=== PATIENT | female | born 1990 | race American Indian/Alaskan Native ===

== ENCOUNTER 2018-09-25 06:30 | Inpatient (IN) | payer MEDICAID, SELFPAY ==
[2018-09-25 07:24] VITALS: BMI 27.8
[2018-09-25] MEDS ORDERED: Lactated Ringer's 1,000 ML IV ONE ×2 (07:24→07:27)
--- NOTE | 2018-09-25 08:15 | OBADHP ---
Datetime: 09/25/2018 07:47 Admit Comment, IP Provider: 27 yo with IUP at EGA of 37.3 wk JOHN 10/13/2018, who presents to ED[facility] with c/o of contractions every 4 minutes and pink vaginal mucous like discharge. Denies LOF. Re ports good movements. Denies fever, chills, dizziness, headaches, blurry vision, N/V/D/C, CP, S OB or dysuria. 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 SOCH: Denies smoking, ETOH, or Drugs SURG: None MEDS: PNV Allergies:NKDA LABS: GBS positive, ABO: O+, Rubella Immune, (Quant, HIV, GC,CHL, RPR) negative VS BP 140/83 PE GEN: NAD HEENT: NCAT RESP: CTA B/L, no wheezes rales or rhonchi CV: RRR, S1 S2 normal, no murmurs ABD: Gravid, soft to palpation, nontender EXT: No edema PELVIC: 3cm, 80% effaced, -1 station A/P 27 yo with IUP at EGA of 37.3 wk JOHN 10/13/2018, who presents to EDOB with c/o of contracti ons every 4 minutes and pink vaginal mucous like discharge Plan: -Admit to L _ D -Initiate labor protocol, IVF, pain control -GBS+ start PCN -Maternal VS monitoring- BP 140/93 -FHR monitoring 140's, moderate variability, 15x15 accels -IVF's, regular diet Case reviewed and discussed with Dr Alexa Roland PGY1 OB Hospitalist Addendum: 27 yo at 37+3 wks w/ GDM in labor. FHT reassuring. GBS positive. Will start penicillin got GBS prophylaxis. (ES) Extremities - PN: Normal Abdomen - PN: Normal Lungs - PN: Normal Heart - PN: Normal HEENT - PN: Normal General - PN: Normal FHR - Baseline A Provider: 140's Membranes, Provider: Intact Comments, ACOG Physical Exam: GEN: Lying in bed NAD HEENT: NCAT CARD: RRR + S1S2 RESP: CTA, no wheezing, rales or rhonchi GI: Gravid, + BS, no tenderness to palpation EXT: No edema, no calf tenderness Monitor FHR tracing 140's, moderate variability, 15x15 accelerations Pool Provider: Negative IP Hx Assessment: The History has been Reviewed and is Current Vital Signs Provider: Reviewed Vital Signs Provider Details: 140/83 IP Chief Complaint: Uterine contractions NICHD Variability Prov Fetus A: Moderate 6-25bpm NICHD Accel Fetus A IP Provider: [id number] FHR Category Provider Fetus A: Category I NICHD Decel Fetus A IP Provider: None Dilatation, Provider: 3 Effacement, Provider: 80 Station, Provider: -1 Genitourinary Exam: Normal EGA AdmitDate IP: 37.3 IP Adm Impression: Term, intrauterine ; Intact Membranes IP Admit Plan: Admit to unit; Initiate labor protocol Datetime: 09/25/2018 07:41 Contraction Comments Provider: [email or web address]
--- NOTE | 2018-09-25 08:27 | OBHP ---
Datetime: 09/25/2018 07:47 IP Adm Impression: Term, intrauterine ; Intact Membranes IP Admit Plan: Admit to unit; Initiate labor protocol Admit Comment, IP Provider: 27 yo with IUP at EGA of 37.3 wk JOHN 10/13/2018, who presents to ED[facility] with c/o of contractions every 4 minutes and pink vaginal mucous like discharge. Denies LOF. Re ports good movements. Denies fever, chills, dizziness, headaches, blurry vision, N/V/D/C, CP, S OB or dysuria. OBGYN: Gest DM diet controlled 1 - 2008 No hx of STD's, reports normal pap in aug no HPV Provider: [facility] PMH: Gest DM FMH: DM, HTN, [employer] Ca, Breast ca SOCH: Denies smoking, ETOH, or Drugs SURG: None MEDS: PNV Allergies:NKDA LABS: GBS positive, ABO: O+, Rubella Immune, (Quant, HIV, GC,CHL, RPR) negative VS BP 140/83 PE GEN: NAD HEENT: NCAT RESP: CTA B/L, no wheezes rales or rhonchi CV: RRR, S1 S2 normal, no murmurs ABD: Gravid, soft to palpation, nontender EXT: No edema PELVIC: 3cm, 80% effaced, -1 station A/P 27 yo with IUP at EGA of 37.3 wk JOHN 10/13/2018, who presents to ED[facility] with c/o of contracti ons every 4 minutes and pink vaginal mucous like discharge Plan: -Admit to L _ D -Initiate labor protocol, IVF, pain control -GBS+ start PCN -Maternal VS monitoring- BP 140/93 -FHR monitoring 140's, moderate variability, 15x15 accels -IVF's, regular diet Case reviewed and discussed with Dr Alexa Roland PGY1 OB Hospitalist Addendum: 27 yo at 37+3 wks w/ GDM in labor. FHT reassuring. GBS positive. Will start penicillin got GBS prophylaxis. (ES) Extremities - PN: Normal Abdomen - PN: Normal Lungs - PN: Normal Heart - PN: Normal HEENT - PN: Normal General - PN: Normal FHR - Baseline A Provider: 140's Membranes, Provider: Intact Comments, ACOG Physical Exam: GEN: Lying in bed NAD HEENT: NCAT CARD: RRR + S1S2 RESP: CTA, no wheezing, rales or rhonchi GI: Gravid, + BS, no tenderness to palpation EXT: No edema, no calf tenderness Monitor FHR tracing 140's, moderate variability, 15x15 accelerations Pool Provider: Negative IP Hx Assessment: The History has been Reviewed and is Current EGA AdmitDate IP: 37.3 Vital Signs Provider: Reviewed Vital Signs Provider Details: 140/83 IP Indication for Induction: Not Applicable IP Chief Complaint: Uterine contractions NICHD Variability Prov Fetus A: Moderate 6-25bpm NICHD Accel Fetus A IP Provider: [id number] FHR Category Provider Fetus A: Category I NICHD Decel Fetus A IP Provider: None Dilatation, Provider: 3 Effacement, Provider: 80 Station, Provider: -1 Genitourinary Exam: Normal Datetime: 09/25/2018 07:41 Contraction Comments Provider: Q4mins
[2018-09-25] MEDS ORDERED: Penicillin G 5 Million Unit Vial IVPB ONE (09:00)
[2018-09-25 09:37] LABS: BASO % 0.3 % (0.0-2.0); EOS # 0.1 K/uL (0.0-0.7); HEMOGLOBIN 12.7 g/dL (12.0-16.0); LYMPH # 1.4 K/uL (1.0-4.3); LYMPH % 18.8 % (20.0-40.0); MEAN CELL VOLUME 83.6 fl (81.0-99.0); MEAN CORPUSCULAR HEMOGLOBIN 26.9 pg (27.0-31.0); MEAN CORPUSCULAR HGB CONC 32.2 g/dL (33.0-37.0); MEAN PLATELET VOLUME 9.5 fl (7.2-11.7); MONO # 0.6 K/uL (0.0-0.8); MONO % 7.2 % (0.0-10.0); NEUT # 5.6 K/uL (1.8-7.0); NEUT % 72.7 % (50.0-75.0); NRBC % 0.1 % (0.0-0.0); RBC 4.74 Mil/uL (3.80-5.20); RED CELL DISTRIBUTION WIDTH 14.3 % (11.5-14.5); WHITE BLOOD COUNT 7.7 K/uL (4.8-10.8)
[2018-09-25] MEDS ORDERED: Bupivacaine HCl 0.5% PF (30 ml) Inj ONE (10:18)
[2018-09-25] MEDS ORDERED: Fentanyl/Bupivacaine HCl 250 ML EPI ONE (10:58)
--- NOTE | 2018-09-25 11:06 | OBPN ---
Datetime: 09/25/2018 10:03 IP Progress Impression: Normal progression of labor IP Informed Consent Obtain: Vaginal Delivery IP Procedures: Sterile Vag Exam IP Progress Plan: Continue present management Membranes, Provider: Intact Contraction Comments Provider: q 2-4 mins FHR - Baseline A Provider: 140 IP Progress Note Comment: Patient evaluated, feels contractions are stronger, would like epidural VE = 6/50/-2 FHR = 140 mod brionna, +accels, no decels TOCO = ctxns q 2-4 mins A/P 1. Patient progressing well, now 6cm dilated, requesting epidural 2. CEFm and TOCO 3. Will attempt AROM at next check NICHD Accel Fetus A IP Provider: [id number] NICHD Variability Prov Fetus A: Moderate 6-25bpm Dilatation, Provider: 6 Effacement, Provider: 50 Station, Provider: -2 NICHD Decel Fetus A IP Provider: Early Datetime: 09/25/2018 07:47 Pool Provider: Negative Vital Signs Provider: Reviewed Vital Signs Provider Details: 140/83 FHR Category Provider Fetus A: Category I Datetime: 09/25/2018 07:41 Presentation-Admit: Vertex
[2018-09-25] MEDS ORDERED: Oxytocin 30 UNIT in NS 500 ml 30 UNITS/500 ML BAG IV ONE ×3 (13:05→13:30)
[2018-09-25] MEDS ORDERED: Benzocaine/Menthol SPRAY TOP PRN ×2 (13:27→17:46)
[2018-09-25] MEDS ORDERED: Oxycodone/Acetaminophen 5/325 mg Tab PO PRN ×2 (13:27→17:46)
--- NOTE | 2018-09-25 13:36 | OBDS ---
MATERNAL INFORMATION Provider Comments: of live male over intact perineum in JESUS presentation, loose nuchal c ord, light meconium, followed by shoulders and rest of infant, mouth and nose suctioned on mother's c hest, cord blood obtained, placenta delivered spontaneously, fundus firm, no lacerations needed for r epair, EBL=50mL, pt tolerated procedure well LABOR SUMMARY EDC: 10/13/2018 00:00 No. Babies in Womb: 1 LABOR INFORMATION Onset of Labor: 09/25/2018 04:00 Group B Beta Strep: Positive
[2018-09-26 08:02] LABS: BASO % 0.3 % (0.0-2.0); EOS % 0.4 % (0.0-4.0); HEMOGLOBIN 11.4 g/dL (12.0-16.0); LYMPH # 1.5 K/uL (1.0-4.3); LYMPH % 13.7 % (20.0-40.0); MEAN CELL VOLUME 82.8 fl (81.0-99.0); MEAN CORPUSCULAR HEMOGLOBIN 27.3 pg (27.0-31.0); MEAN PLATELET VOLUME 9.2 fl (7.2-11.7); MONO # 0.8 K/uL (0.0-0.8); MONO % 7.3 % (0.0-10.0); NEUT # 8.5 K/uL (1.8-7.0); NEUT % 78.3 % (50.0-75.0); NRBC % 0.2 % (0.0-0.0); RBC 4.16 Mil/uL (3.80-5.20); RED CELL DISTRIBUTION WIDTH 14.2 % (11.5-14.5); WHITE BLOOD COUNT 10.8 K/uL (4.8-10.8)
--- NOTE | 2018-09-26 08:48 | OBPPN ---
Datetime: 09/26/2018 07:41 PP Pain Prov: Within normal limits PP Nausea Prov: Denies PP Flatus Prov: Yes PP BM Prov: No PP Breasts Prov: Not Done PP Heart Prov: Normal PP Lungs Prov: Normal PP Abdomen/Uterus Prov: Normal PP Lochia Prov: Normal PP Vulva/Perineum Prov: Normal PP CVA Tenderness Prov: Normal PP Extremities Prov: Normal PP C/S Incision Prov: Not Applicable PP Progress Prov: Normal PP Impression Prov: Normal progression PP Plan Prov: Continue present management; Discharge PP Progress Note Prov: S: 27 yo s/p on 09/25/18, PPD1. Pt was seen and examined at [facility] this AM. No overnight events. Pain is minimal. Ambulating and tolerating PO diet without difficult y. Breast feeding exclusively. Lochia < menses. +Flatus/- BM. Denies dizziness, orthostatic changes, changes in vision, palpitations, chest pain, fever, chills, diarrhea, nausea and vomiting. O: VS: Stable overnight GEN: NAD Cardio: S1S2, no murmurs Lungs: clear breath sounds b/l, no wheezing Abdomen: BS+, appropriate tenderness to palpation. Uterus is firm and at the level of the umbilic us. EXT: No edema, calves non-tender NEURO/PSYCH: AAOx3, no grossly focal deficits, preserved affect and mood. H/H: aCBC: 12.7/39.6 pCBC: pending Assessment/Plan: 27 yo s/p on 09/25/18, PPD1. Pt remains afebrile, tolerating pain. -Regular diet -Anticipate discharge, 09/27/18 -Continue with current management -Encourage and ambulating -Colace 100mg BID -Ibuprofen 600mg q6 for pain Mecca Calos, PGY 1 OB Hospitalsist Addendum: Pt seen and examined by me. Agree w/ above. PPD 1 s/p , doing well, breast feeding. Continue curent management. (ES) Vital Signs Provider PP: Reviewed; Within Normal Limits
[2018-09-26] MEDS: Multivitamin With Minerals Tab PO SCH (09:00)
[2018-09-26] MEDS ORDERED: Influenza Vaccine (5 YR UP)/PF 60 MCG/0.5 ML SYR IM ONE ×2 (09:00→13:17)
[2018-09-26] MEDS ORDERED: Multivitamin With Minerals Tab PO SCH (09:00)
[2018-09-26] MEDS ORDERED: Influenza Vaccine 60 mcg/0.5 mL SYR (4YR UP) IM ONE (14:00)
[2018-09-27] MEDS: Multivitamin With Minerals Tab PO SCH (08:47)
--- NOTE | 2018-09-27 10:27 | OBDCSUM ---
Datetime: 09/27/2018 07:41 Discharged to, Provider: Home Follow up at, Provider: [facility] Disch Instr Activity: Normal activity Disch Instr Diet: Regular Discharge Instructions, Provider: Routine instructions given Discharge Diagnosis, Provider: Term Delivered Discharge Time: 09/27/2018 07:41 Follow up in weeks, Provider: 4-6wks for PP, and [facility] 2-3 days appt Disch Referrals: None Contraception discussed, Prov: Yes Disch Activity Restrictions: Minimize stair-climbing; No sexual activity; Nothing in vagina - Interc ourse, tampons, douche Discharge Comment, Provider: Encourage PNV 1 tab po q/day Ibuprofen 600 mg 1 tab po prn q4-6 if moderate pain #30. NO REFILL. Ambulatory with caution, nothing per vagina/sex for 4 weeks, no heavy lifting, avoid stairs, if ex cessive bleeding or fever without relief from Tylenol go to ED F/U at [facility] in 2-3 days for appt emailed matt and at [facility] in 4-6 weeks for post appt Contraception after Delivery: Control Pill/Patch
--- NOTE | 2018-09-27 10:27 | OBPPN ---
Datetime: 09/27/2018 07:31 PP Pain Prov: Within normal limits PP Nausea Prov: Denies PP Flatus Prov: Yes PP BM Prov: Yes PP Heart Prov: Normal PP Lungs Prov: Normal PP Abdomen/Uterus Prov: Normal PP Lochia Prov: Normal PP Extremities Prov: Normal PP C/S Incision Prov: Not Applicable PP Progress Prov: Normal PP Comments Phys Exam Prov: GEN: Lying in bed NAD HEENT: NCAT CARD: RRR + S1S2 RESP: CTA, no wheezing, rales or rhonchi GI: + BS, nontender to palpation, Fundus firm below umbilicus EXT: No edema, no calf tenderness PP Impression Prov: Normal progression PP Plan Prov: Discharge PP Progress Note Prov: S: 27 yo s/p on 09/25/18, PPD2. Pt was seen and examined at [facility] this AM. No overnight events. Pain is well controlled not needing medication. Ambulating and georges ating PO diet without difficulty. Breast feeding exclusively. Lochia like menses. +Flatus/ +BM. Gunnar es dizziness, SOB, chest pain, fever, chills, constipation, diarrhea, nausea, vomiting or dysuria. O: VS: Stable overnight GEN: NAD Cardio: S1S2, no murmurs Lungs: clear breath sounds b/l, no wheezing Abdomen: BS+, nontender to palpation. Uterus is firm below level of the umbilicus. EXT: No edema, calves non-tender H/H: aCBC: 12.7/39.6 pCBC: 11.4/34.5 Assessment/Plan: 27 yo s/p on 09/25/18, PPD2. Pt remains afebrile, tolerating pain. -D/C home today -Regular diet -Encourage and ambulating -Ibuprofen 600mg q6 for pain # 30 -Pt will follow up with [facility] for Post emailed matt for appt Case reviewed and discussed with attending Imani Roland, PGY [address] Perry: I have evaluated the patient independently and I agree with the above IP PP Procedures: None Vital Signs Provider PP: Reviewed; Within Normal Limits
[2018-09-27 19:27] VITALS: BP 128/78; PULSE 93; RESP 18; TEMP 98.6
== END 2018-09-27 14:55 | disposition home or self-care (01) | DRG 560 ==
LOC: H.EROB2 06:30 → H.EROB 07:25 → H.L&D 09:10 → H.OB/GYN 17:37
PROVIDERS: ADMIT Obstetrics & Gynecology; ATTEND Obstetrics & Gynecology
PROC: 10E0XZZ Delivery of Products of Conception, External Approach (ICD-10-PCS; principal; 2018-09-25)
PROC: 4A1HXCZ Monitoring of Products of Conception, Cardiac Rate, External Approach (ICD-10-PCS; 2018-09-25)
DX: O76 Abnormality in fetal heart rate and rhythm complicating labor and delivery (principal); O24.420 Gestational diabetes mellitus in childbirth, diet controlled; O77.0 Labor and delivery complicated by meconium in amniotic fluid; Z37.0 Single live birth; Z3A.37 37 weeks gestation of pregnancy; O69.81X0 Labor and delivery complicated by cord around neck, without compression, not applicable or unspecified